=== PATIENT | female | born 1945 | race Caucasian/White ===

== ENCOUNTER 2017-10-03 20:16 | Inpatient (IN) | payer OTHER, MEDICARE ==
[2017-10-03] VITALS (7 sets, daily range): BP systolic 109–145; BP diastolic 64–86; PULSE 79–88; RESP 20–22; TEMP 97.6; O2SAT 83–97
[~2017-10-03] VITALS: Ht 160 cm; Wt 80.8 kg
[~2017-10-03 20:16] MED LIST: MOBI15TA PO; SYNT112T PO
[2017-10-03] MEDS ORDERED: SODIUM CHLORIDE 0.9% FLUSH 10 ML FLUSH IVF PRN (20:30)
[2017-10-03] MEDS ORDERED: FUROSEMIDE 100 MG/10 ML VIAL IVP ONE (20:30)
[2017-10-03] MEDS ORDERED: LEVO-168 PO (20:34)
[2017-10-03] MEDS ORDERED: METF500T PO (20:34)
[2017-10-03] MEDS ORDERED: MILL5PAK PO (20:34)
[2017-10-03] MEDS ORDERED: MOBI15TA PO (20:34)
--- NOTE | 2017-10-03 20:40 | PD ---
HPI Chief Complaint: Respiratory Distress Time Seen by Provider: 20:30 Travel History International Travel<30 days: No Contact w/Intl Traveler<30days: No Traveled to known affect area: No History of Present Illness HPI The patient was seen and examined in the presence of the nurse. This patient complains of shortness of breath. Duration 2 hours. Symptoms are severe. No alleviating factors. Patient has poor baseline lung function. She is on 3 L nasal cannula [id number] and often uses another liter or 2 when she gets short of breath. She is chronically short of breath. She has pulmonary fibrosis. She denies cough or congestion or runny nose or fever or chest pain or presyncopal symptoms. She has chronic leg swelling and uses as needed diuretic. No exacerbating factors. PFSH Past Medical History ?: Not Social History Alcohol Use: No Tobacco Use: No Substance Use: No Allergies-Medications (Allergen,Severity, Reaction): Coded Allergies: No Known Allergies (Verified Adverse Reaction, Unknown, 10/03/17) Reported Meds & Prescriptions Reported Meds & Active Scripts Active Reported Metformin (Metformin HCl) 500 Mg Tab 500 Mg PO BIDPC Millipred 5 mg Dose Pack (21 tabs) (Prednisolone) 5 Mg (21 Tabs) Yayo 15 Mg PO DAILY Mobic (Meloxicam) 15 Mg Tab 15 Mg PO DAILY Levothyroxine (Levothyroxine Sodium) 112 Mcg Tab 112 Mcg PO DAILY Review of Systems General / Constitutional: No: Fever Eyes: No: Visual changes HENT: No: Headaches Cardiovascular: Positive: Edema, No: Chest Pain or Discomfort Respiratory: Positive: Shortness of Breath Gastrointestinal: No: Abdominal Pain Genitourinary: No: Dysuria Musculoskeletal: Positive: Edema, No: Pain Skin: No Rash Neurologic: No: Weakness Psychiatric: No: Depression Endocrine: No: Polydipsia Hematologic/Lymphatic: No: Easy Bruising Physical Exam Narrative GENERAL: Elderly short of breath well-developed patient SKIN: Focused skin assessment reveals no rash and nodules. Skin is Warm and dry. HEAD: Atraumatic. Normocephalic. EYES: Pupils equal and round. No scleral icterus. No injection or drainage. ENT: No nasal bleeding or discharge. Mucous membranes pink and moist. NECK: Trachea midline. No JVD. CARDIOVASCULAR: Regular rate and rhythm. No murmur appreciated. RESPIRATORY: Some accessory muscle use. Bilateral basilar and mid lung crackles without wheezing. Breath sounds equal bilaterally. GASTROINTESTINAL: Abdomen soft, non-tender, nondistended. Hepatic and splenic margins not palpable. MUSCULOSKELETAL: No obvious deformities. No clubbing. No cyanosis. Symmetric mild edema the feet and ankles NEUROLOGICAL: Awake and alert. No obvious cranial nerve deficits. Motor grossly within normal limits. Normal speech. PSYCHIATRIC: Appropriate mood and affect; insight and judgment normal. Data Data Last Documented VS Vital Signs Date Time Temp Pulse Resp B/P (MAP) Pulse Ox O2 Delivery O2 Flow Rate FiO2 10/03/17 21:30 82 22 117/74 (88) 97 Partial Rebreather 15.00 10/03/17 20:24 97.6 Orders Orders Complete Blood Count With Diff (10/03/17 20:30) Basic Metabolic Panel (Bmp) (10/03/17 20:30) B-Type Natriuretic Peptide (10/03/17 20:30) Arterial Blood Gas (Abg) (10/03/17 20:30) Iv Access Insert/Monitor (10/03/17 20:30) Electrocardiogram (10/03/17 20:30) Ecg Monitoring (10/03/17 20:30) Oximetry (10/03/17 20:30) Oxygen Administration (10/03/17 20:30) Chest, Single Ap (10/03/17 20:30) Urinary Catheter Insert/Apply (10/03/17 20:30) Sodium Chloride 0.9% Flush (Ns Flush) (10/03/17 20:30) Furosemide Inj (Lasix Inj) (10/03/17 20:30) Urinalysis - C+S If Indicated (10/03/17 21:31) Lactic Acid (10/03/17 21:31) Blood Culture (10/03/17 21:31) Admit Order (Ed Use Only) (10/03/17 22:12) Labs Laboratory Tests Test 10/03/17 20:30 10/03/17 20:37 White Blood Count 23.3 TH/MM3 Red Blood Count 5.54 MIL/MM3 Hemoglobin 18.2 GM/DL Hematocrit 56.8 % Mean Corpuscular Volume 102.6 FL Mean Corpuscular Hemoglobin 32.8 PG Mean Corpuscular Hemoglobin Concent 32.0 % Red Cell Distribution Width 13.2 % Platelet Count 180 TH/MM3 Mean Platelet Volume 8.8 FL Neutrophils (%) (Auto) 58.0 % Lymphocytes (%) (Auto) 35.7 % Monocytes (%) (Auto) 5.1 % Eosinophils (%) (Auto) 0.4 % Basophils (%) (Auto) 0.8 % Neutrophils # (Auto) 13.5 TH/MM3 Lymphocytes # (Auto) 8.3 TH/MM3 Monocytes # (Auto) 1.2 TH/MM3 Eosinophils # (Auto) 0.1 TH/MM3 Basophils # (Auto) 0.2 TH/MM3 CBC Comment AUTO DIFF Differential Total Cells Counted 100 Neutrophils % (Manual) 57 % Band Neutrophils % 1 % Lymphocytes % 37 % Monocytes % 5 % Neutrophils # (Manual) 13.5 TH/MM3 Differential Comment FINAL DIFF MANUAL Platelet Estimate NORMAL Platelet Morphology Comment CLUMPED Blood Urea Nitrogen 31 MG/DL Creatinine 1.60 MG/DL Random Glucose 258 MG/DL Calcium Level 9.1 MG/DL Sodium Level 139 MEQ/L Potassium Level 5.0 MEQ/L Chloride Level 104 MEQ/L Carbon Dioxide Level 16.9 MEQ/L Anion Gap 18 MEQ/L Estimat Glomerular Filtration Rate 32 ML/MIN B-Type Natriuretic Peptide 1114 PG/ML Blood Gas Puncture Site RT BRACHIAL Blood Gas Patient Temperature 98.6 Blood Gas HCO3 14 mmol/L Blood Gas Base Excess -11.0 mmol/L Blood Gas Oxygen Saturation 87 % Arterial Blood pH 7.28 Arterial Blood Partial Pressure CO2 32 mmHG Arterial Blood Partial Pressure O2 73 mmHG Arterial Blood Oxygen Content 21.9 Vol % Arterial Blood Carboxyhemoglobin 1.6 % Arterial Blood Methemoglobin 1.0 % Blood Gas Hemoglobin 17.9 G/DL Oxygen Delivery Device NASAL CANNULA Blood Gas Liter Flow 6 L/M [facility] Medical Decision Making Medical Screen Exam Complete: Yes Emergency Medical Condition: Yes Medical Record Reviewed: Yes Differential Diagnosis Pulmonary fibrosis, CHF, COPD, respiratory failure Narrative Course I have reviewed the patient's electronic medical record. IV placed CBC shows leukocytosis which may be prednisone affect at least in part metabolic profile shows renal insufficiency and decreased bicarbonate I reviewed her chest x-ray which shows diffuse fibrosis Placed her on 6 L nasal cannula and she is getting around 90% ABG shows pH of 7.28, PO2 73 on 6 L. Reveals metabolic acidosis with some respiratory compensation I gave her 40 mg IV Lasix BnP is quite elevated over thousand Patten catheter placed for I and O, urinalysis sent Had a lengthy discussion with patient and at bedside We have decided to make her a DO NOT RESUSCITATE patient. She understands what that entails. She does not want to be put on a ventilator or CPR or defibrillation I have reviewed with hospitalist will admit to the regular floor. I don't think we need to intensive care at this point given her DNR status and lack of tachycardia or hypotension She is not febrile and I don't think she is septic Dr. Zavala will decide upon antibiotic therapy and consult her manager material The nurse placing a second IV using ultrasound guidance Critical Care Narrative Aggregate critical care time was 38 minutes. Time to perform other separately billable procedures was not included in the critical care time. My time did not include minutes spent treating any other patients simultaneously or on activities that did not directly contribute to the patient's treatment. The services I provided to this patient were to treat and/or prevent clinically significant deterioration that could result in: Hypoxemic brain injury, Restoril failure, cardiopulmonary arrest I provided critical care services requiring my management, as noted below: Chart data review, documentation time, medication orders and management, vital sign assessments/reviewing monitor data, ordering and reviewing lab tests, ordering and interpreting/reviewing x-rays and diagnostic studies, care of the patient and discussion of the patient with the admitting physicians. Diagnosis Primary Impression: Acute hypoxemic respiratory failure Additional Impression: Pulmonary fibrosis Admitting Information Admitting Physician Requests: Joel Florian MD Oct 03, 2017 20:40
[2017-10-03 21:05] LABS: CALCIUM 9.1 MG/DL (8.5-10.1)
[2017-10-03 21:06] LABS: BICARBONATE 16.9 MEQ/L (21.0-32.0)
[2017-10-03 21:09] LABS: CREATININE 1.6 MG/DL (0.50-1.00)
[2017-10-03 21:19] LABS: AUTOMATED NEUTROPHIL # 13.5 TH/MM3 (1.8-7.7); BASOPHIL # 0.2 TH/MM3 (0-0.2); BASOPHIL % 0.8 % (0.0-2.0); EOSINOPHIL # 0.1 TH/MM3 (0-0.4); EOSINOPHIL % 0.4 % (0.0-4.0); HEMATOCRIT 56.8 % (35.0-46.0); HEMOGLOBIN 18.2 GM/DL (11.6-15.3); LYMPH % 35.7 % (9.0-44.0); LYMPHOCYTE # 8.3 TH/MM3 (1.0-4.8); MEAN CELL VOLUME 102.6 FL (80.0-100.0); MEAN CORPUSCULAR HEMOGLOBIN 32.8 PG (27.0-34.0); MEAN PLATELET VOLUME 8.8 FL (7.0-11.0); MONO % 5.1 % (0.0-8.0); MONOCYTE # 1.2 TH/MM3 (0-0.9); PLATELET COUNT 180 TH/MM3 (150-450); RED BLOOD COUNT 5.54 MIL/MM3 (4.00-5.30); RED CELL DISTRIBUTION WIDTH 13.2 % (11.6-17.2); WHITE BLOOD COUNT 23.3 TH/MM3 (4.0-11.0)
[2017-10-03 21:38] LABS: BANDS 1 % (0-6); LYMPHOCYTES 37 % (9-44); MONOCYTES 5 % (0-8); NEUTROPHIL # MANUAL DIFF 13.5 TH/MM3 (1.8-7.7); POLYS (SEG NEUTROPHILS) 57 % (16-70)
--- NOTE | 2017-10-03 21:40 | RADRPT ---
EXAM DATE/TIME: 10/03/2017 21:18 [place] COMPARISON: No previous studies available for comparison. INDICATIONS : Cough and short of breath. MEDICAL HISTORY : Cystic fibrosis. SURGICAL HISTORY : None. ENCOUNTER: Initial ACUITY: 1 day PAIN SCORE: 0/10 LOCATION: Bilateral chest FINDINGS: Chronic reticular interstitial lung disease seen bilaterally diffusely. Focal consolidation is not se en. Heart and mediastinum are unremarkable for technique. CONCLUSION: Chronic reticular interstitial lung disease. Elijah Leach MD on October 03, 2017 at 21:38 Board Certified Radiologist. This report was verified electronically.
[2017-10-03] MEDS ORDERED: SENNOSIDES 8.6 MG TAB PO PRN (22:30)
[2017-10-03] MEDS ORDERED: SODIUM CHLORIDE 0.9% FLUSH 10 ML FLUSH IV FLUSH PRN (22:30)
[2017-10-03] MEDS ORDERED: ONDANSETRON HCL 4 MG/2 ML VIAL IVP PRN (22:30)
[2017-10-03] MEDS ORDERED: LACTULOSE SYRUP 20 GM/30 ML CUP PO PRN (22:30)
[2017-10-03] MEDS ORDERED: MAGNESIUM HYDROXIDE SUSP 30 ML CUP PO PRN (22:30)
[2017-10-03] MEDS ORDERED: BISACODYL 10 MG SUPP RECTAL PRN (22:30)
[2017-10-03] MEDS ORDERED: NALOXONE HCL 0.4 MG/ML AMP IV PUSH PRN (22:30)
[2017-10-03] MEDS ORDERED: ACETAMINOPHEN 325 MG TAB PO PRN (22:30)
[2017-10-03 22:51] LABS: BILIRUBIN, URINE NEG (NEG); BLOOD, URINE NEG (NEG); GLUCOSE,URINE NEG (NEG); KETONE, URINE NEG (NEG); NITRITE,URINE NEG (NEG); PH, URINE 5.5 (5.0-8.5); URINE LEUKOCYTE ESTERASE NEG (NEG)
[2017-10-03 22:56] LABS: URINE COLOR YELLOW (YELLW/STRAW)
[2017-10-03 22:57] LABS: MUCUS URINE OCC /lpf (OCC)
[2017-10-03 22:58] LABS: AMORPHOUS SEDIMENT, URINE MOD; SQUAMOUS EPITHELIAL CELL URINE 0-5 /hpf (0-5)
[2017-10-03 22:59] LABS: RENAL EPITHELIAL CELLS 0-5 /hpf
[2017-10-03] MEDS ORDERED: HEPARIN SODIUM - SQ 10,000 UNITS/ML VIAL SQ SCH (23:00)
[2017-10-04] VITALS (7 sets, daily range): BP systolic 125–140; BP diastolic 59–75; PULSE 68–73; RESP 18–24; TEMP 97.3–97.9; O2SAT 90–95
[2017-10-04] MEDS: SODIUM CHLOR 0.9% 1000 ML INJ 1,000 ML IV SCH ×3 (02:59→14:39)
[2017-10-04 03:38] LABS: LACTIC ACID SEPSIS PROTOCOL 2.1 mmol/L (0.4-2.0)
[2017-10-04 06:32] LABS: AUTOMATED NEUTROPHIL # 12.5 TH/MM3 (1.8-7.7); BASOPHIL # 0.8 TH/MM3 (0-0.2); BASOPHIL % 2.9 % (0.0-2.0); EOSINOPHIL # 0.4 TH/MM3 (0-0.4); EOSINOPHIL % 1.3 % (0.0-4.0); HEMATOCRIT 48.8 % (35.0-46.0); HEMOGLOBIN 15.8 GM/DL (11.6-15.3); LYMPH % 42.8 % (9.0-44.0); LYMPHOCYTE # 11.6 TH/MM3 (1.0-4.8); MEAN CELL VOLUME 102.9 FL (80.0-100.0); MEAN CORPUSCULAR HEMOGLOBIN 33.3 PG (27.0-34.0); MEAN CORPUSCULAR HGB CONC 32.4 % (32.0-36.0); MEAN PLATELET VOLUME 8.7 FL (7.0-11.0); MONO % 6.6 % (0.0-8.0); MONOCYTE # 1.8 TH/MM3 (0-0.9); NEUT % 46.4 % (16.0-70.0); PLATELET COUNT 151 TH/MM3 (150-450); RED BLOOD COUNT 4.75 MIL/MM3 (4.00-5.30); WHITE BLOOD COUNT 27.1 TH/MM3 (4.0-11.0)
[2017-10-04 07:06] LABS: BICARBONATE 24.2 MEQ/L (21.0-32.0); CALCIUM 8.4 MG/DL (8.5-10.1)
[2017-10-04 07:39] LABS: BASOPHILS 1 % (0-2); LYMPHOCYTES 44 % (9-44); MONOCYTES 9 % (0-8); NEUTROPHIL # MANUAL DIFF 12.5 TH/MM3 (1.8-7.7); POLYS (SEG NEUTROPHILS) 46 % (16-70)
[2017-10-04 07:43] LABS: SMUDGE CELLS PRESENT PRESENT
[2017-10-04] MEDS: SODIUM CHLORIDE 0.9% FLUSH 10 ML FLUSH IV FLUSH SCH ×2 (07:43→22:04)
[2017-10-04] MEDS: DOCUSATE SODIUM 50 MG/SENNA 8.6 MG TAB PO SCH ×2 (07:55→22:04)
[2017-10-04] MEDS ORDERED: DEXTROSE 50% IN WATER 50 ML VIAL(D50) IV PUSH PRN (10:30)
[2017-10-04] MEDS ORDERED: GLUCAGON 1 MG/ML VIAL OTHER PRN (10:30)
[2017-10-04] MEDS ORDERED: RESP: ALBUTEROL 2.5 MG/IPRATROPIUM 0.5 MG NEB (PRN) NEB (11:15)
[2017-10-04] MEDS ORDERED: methylPREDNISolone SOD SUCC 40 MG/1 ML VIAL IV PUSH SCH (11:30)
--- NOTE | 2017-10-04 11:30 | HHI.HP ---
[facility] Unknown Admission Diagnosis acute on chronic resp failure, DNR, pulm fibrosis Diagnoses: Chief Complaint: Shortness of breath with nausea for one day Travel History International Travel<30 Days: No Contact w/Intl Traveler <30 Da: No Traveled to Known Affected Are: No Sepsis Criteria SIRS Criteria (2 or more): RR > 20 or PaCO2 < 32, WBC > 30669, < 4000 or > 10 % bands Sepsis Criteria (SIRS+source): Infect source susp/known History of Present Illness This patient is a 72-year-old female with a history of pulmonary fibrosis who came to the hospital secondary to decreased breathing, nausea and altered mental status for 1 day. Patient was brought to the hospital by emergency services after her called. Per she had turned blue. Patient says she had a lot of lower predinner was working a lot and had difficulty breathing and tried to lay down but apparently she didn't wake up in a timely fashion and then she woke up to find multiple emergency personnel around her. She has known history of polio fibrosis for the last 4 years. She has seen several screen printing machine operator in the past and has finally scheduled with Dr. Hyatt. Patient says her grandson was 17 was sick and coughing and she may have caught something from him. She did have some coughing. She has felt better with bronchodilators and oxygen. On arrival she required 15 L on a partial nonrebreather. Normally she uses 3-4 L at home. She is minimally ambulatory and has poor quality of life due to respiratory status. She is quite acidotic on arrival. In the emergency room she did have a DNR placed in her chart after conversations with the emergency room professional team. She felt better after IV Lasix was given. She did diurese quite a bit and about a liter fluid was obtained. She has been admitted to the hospital due to severe respiratory failure and evidence of sepsis Review of Systems Constitutional: DENIES: Diaphoretic episodes, Fatigue, Fever, Weight gain, Weight loss, Chills, Dizziness, Change in appetite, Night Sweats Endocrine: DENIES: Abnorml menstrual pattern, Heat/cold intolerance, Polydipsia , Polyuria, Polyphagia Eyes: DENIES: Blurred vision, Diplopia, Eye inflammation, Eye pain, Vision loss , Photosensitivity, Double Vision Ears, nose, mouth, throat: DENIES: Tinnitus, Hearing loss, Vertigo, Nasal discharge, Oral lesions, Throat pain, Hoarseness, Ear Pain, Running Nose, Epistaxis, Sinus Pain, Toothache, Odynophagia Respiratory: COMPLAINS OF: Cough, Shortness of breath, DENIES: Apneas, Snoring , Wheezing, Hemoptysis, Sputum production Cardiovascular: DENIES: Chest pain, Palpitations, Syncope, Dyspnea on Exertion , PND, Lower Extremity Edema, Orthopnea, Claudication Gastrointestinal: DENIES: Abdominal pain, Black stools, Bloody stools, Constipation, Diarrhea, Nausea, Vomiting, Difficulty Swallowing, Anorexia Genitourinary: DENIES: Abnormal vaginal bleeding, Dysmenorrhea, Dyspareunia, Sexual dysfunction, Urinary frequency, Urinary incontinence, Urgency, Hematuria , Dysuria, Nocturia, Vaginal discharge Musculoskeletal: DENIES: Joint pain, Muscle aches, Stiffness, Joint Swelling, Back pain, Neck pain Integumentary: DENIES: Abnormal pigmentation, Pruritus, Rash, Nail changes, Breast masses, Breast skin changes, Nipple discharge Hematologic/lymphatic: DENIES: Bruising, Lymphadenopathy Immunologic/allergic: DENIES: Eczema, Urticaria Neurologic: DENIES: Abnormal gait, Headache, Localized weakness, Paresthesias, Seizures, Speech Problems, Tremor, Poor Balance Psychiatric: DENIES: Anxiety, Confusion, Mood changes, Depression, Hallucinations, Agitation, Suicidal Ideation, Homicidal Ideation, Delusions Except as stated in HPI: all other systems reviewed are Neg Past Family Social History Past Medical History Pulmonary fibrosis for 4 years Past Surgical History Tonsils Appendectomy Reported Medications Reviewed in the EMR, on steroids Allergies: Coded Allergies: No Known Allergies (Verified Allergy, Unknown, 10/03/17) Active Ordered Medications Reviewed in the EMR Family History Mother was in hospice for brain cancer and passed, father had lung cancer and passed Social History , no current tobacco although she quit 10 years ago, reports sick contacts and her grandson who is 17 Works at [employer] but is on medical leave due to pulmonary fibrosis Physical Exam Vital Signs Vital Signs Date Time Temp Pulse Resp B/P (MAP) Pulse Ox O2 Delivery O2 Flow Rate FiO2 10/04/17 08:00 97.8 68 18 135/72 (93) 94 10/04/17 00:00 97.3 69 20 125/73 (90) 91 10/03/17 23:45 94 Nasal Cannula 6.00 10/03/17 23:29 76 20 118/64 (82) 92 Nasal Cannula 6.00 10/03/17 22:20 82 20 109/79 (89) 91 Nasal Cannula 6.00 10/03/17 21:30 82 22 117/74 (88) 97 Partial Rebreather 15.00 10/03/17 21:17 79 22 117/74 (88) 97 Partial Rebreather 15.00 10/03/17 20:46 87 22 132/65 (87) 94 Partial Rebreather 10/03/17 20:44 91 Nasal Cannula 6.00 10/03/17 20:24 86 22 83 Nasal Cannula 10/03/17 20:24 97.6 88 22 145/86 (105) 83 Physical Exam GENERAL: This is a well-nourished, well-developed patient, SKIN: No rashes, ecchymoses or lesions. Cool and dry. HEAD: Atraumatic. Normocephalic. No temporal or scalp tenderness. EYES: Pupils equal round and reactive. Extraocular motions intact. No scleral icterus. No injection or drainage. ENT: Nose without bleeding, purulent drainage or septal hematoma. Throat without erythema, tonsillar hypertrophy or exudate. Uvula midline. Airway patent. NECK: Trachea midline. No JVD or lymphadenopathy. Supple, nontender, no meningeal signs. CARDIOVASCULAR: Regular rate and rhythm without murmurs, gallops, or rubs. RESPIRATORY: Decreased breath sounds with fine crackles throughout GASTROINTESTINAL: Abdomen soft, non-tender, nondistended. No hepato-splenomegaly , or palpable masses. No guarding. MUSCULOSKELETAL: Extremities without clubbing, cyanosis, or edema. No joint tenderness, effusion, or edema noted. No calf tenderness. Negative Homans sign bilaterally. NEUROLOGICAL: Awake and alert. Cranial nerves II through XII intact. Motor and sensory grossly within normal limits. Five out of 5 muscle strength in all muscle groups. Normal speech. Laboratory Laboratory Tests Test 10/03/17 20:30 10/03/17 20:37 10/03/17 21:15 10/03/17 21:25 White Blood Count 23.3 Red Blood Count 5.54 Hemoglobin 18.2 Hematocrit 56.8 Mean Corpuscular Volume 102.6 Mean Corpuscular Hemoglobin 32.8 Mean Corpuscular Hemoglobin Concent 32.0 Red Cell Distribution Width 13.2 Platelet Count 180 Mean Platelet Volume 8.8 Neutrophils (%) (Auto) 58.0 Lymphocytes (%) (Auto) 35.7 Monocytes (%) (Auto) 5.1 Eosinophils (%) (Auto) 0.4 Basophils (%) (Auto) 0.8 Neutrophils # (Auto) 13.5 Lymphocytes # (Auto) 8.3 Monocytes # (Auto) 1.2 Eosinophils # (Auto) 0.1 Basophils # (Auto) 0.2 CBC Comment AUTO DIFF Differential Total Cells Counted 100 Neutrophils % (Manual) 57 Band Neutrophils % 1 Lymphocytes % 37 Monocytes % 5 Neutrophils # (Manual) 13.5 Differential Comment FINAL DIFF MANUAL Platelet Estimate NORMAL Platelet Morphology Comment CLUMPED Blood Urea Nitrogen 31 Creatinine 1.60 Random Glucose 258 Calcium Level 9.1 Sodium Level 139 Potassium Level 5.0 Chloride Level 104 Carbon Dioxide Level 16.9 Anion Gap 18 Estimat Glomerular Filtration Rate 32 B-Type Natriuretic Peptide 1114 Blood Gas Puncture Site RT BRACHIAL Blood Gas Patient Temperature 98.6 Blood Gas HCO3 14 Blood Gas Base Excess -11.0 Blood Gas Oxygen Saturation 87 Arterial Blood pH 7.28 Arterial Blood Partial Pressure CO2 32 Arterial Blood Partial Pressure O2 73 Arterial Blood Oxygen Content 21.9 Arterial Blood Carboxyhemoglobin 1.6 Arterial Blood Methemoglobin 1.0 Blood Gas Hemoglobin 17.9 Oxygen Delivery Device NASAL CANNULA Blood Gas Liter Flow 6 Urine Collection Type CATH Urine Color YELLOW Urine Turbidity SLIGHT Urine pH 5.5 Urine Specific [place] 1.010 Urine Protein 30 Urine Glucose (UA) NEG Urine Ketones NEG Urine Occult Blood NEG Urine Nitrite NEG Urine Bilirubin NEG Urine Leukocyte Esterase NEG Urine Squamous Epithelial Cells 0-5 Urine Renal Epithelial Cells 0-5 Urine Amorphous Sediment MOD Urine Hyaline Casts 3-5 Urine Fine Granular Casts 3-5 Urine Mucus OCC Microscopic Urinalysis Comment CATH-CULT NOT IND Lactic Acid Level 5.1 Test 10/04/17 03:15 10/04/17 05:55 Lactic Acid Level 2.1 1.5 White Blood Count 27.1 Red Blood Count 4.75 Hemoglobin 15.8 Hematocrit 48.8 Mean Corpuscular Volume 102.9 Mean Corpuscular Hemoglobin 33.3 Mean Corpuscular Hemoglobin Concent 32.4 Red Cell Distribution Width 13.0 Platelet Count 151 Mean Platelet Volume 8.7 Neutrophils (%) (Auto) 46.4 Lymphocytes (%) (Auto) 42.8 Monocytes (%) (Auto) 6.6 Eosinophils (%) (Auto) 1.3 Basophils (%) (Auto) 2.9 Neutrophils # (Auto) 12.5 Lymphocytes # (Auto) 11.6 Monocytes # (Auto) 1.8 Eosinophils # (Auto) 0.4 Basophils # (Auto) 0.8 CBC Comment AUTO DIFF Differential Total Cells Counted 100 Neutrophils % (Manual) 46 Lymphocytes % 44 Monocytes % 9 Basophils % 1 Neutrophils # (Manual) 12.5 Differential Comment FINAL DIFF MANUAL Smudge Cells PRESENT Platelet Estimate NORMAL Platelet Morphology Comment NORMAL Blood Urea Nitrogen 33 Creatinine 1.00 Random Glucose 101 Calcium Level 8.4 Sodium Level 143 Potassium Level 4.0 Chloride Level 108 Carbon Dioxide Level 24.2 Anion Gap 11 Estimat Glomerular Filtration Rate 54 Date/Time Source Procedure Growth Status 10/03/17 21:25 Blood Peripheral Aerobic Blood Culture - Preliminary NO GROWTH IN 1 DAY Resulted 10/03/17 21:25 Blood Peripheral Anaerobic Blood Culture - Preliminary NO GROWTH IN 1 DAY Resulted Result Diagram: 10/04/17 0555 10/04/17554 Imaging Last Impressions Chest X-Ray 10/03/172029 Signed Impressions: Service Date/Time: Tuesday, October 03, 2017 21:18 - CONCLUSION: Chronic reticular interstitial lung disease. MD Jinny Shah VTE Risk Assessment Geraldrini VTE Risk Assessment: Mod/High Risk (score >= 2) Caprini Risk Assessment Model Point Value = 1 Point Value = 2 Point Value = 3 Point Value = 5 Age 41-60 Minor surgery BMI > 25 kg/m2 Swollen legs Varicose veins or History of unexplained or recurrent spontaneous Oral contraceptives or hormone replacement Sepsis (< 1 month) Serious lung disease, including pneumonia (< 1 month) Abnormal pulmonary function Acute myocardial infarction Congestive heart failure (< 1 month) History of inflammatory bowel disease Medical patient at bed rest Age 61-74 Arthroscopic surgery Major open surgery (> 45 min) Laparoscopic surgery (> 45 min) Malignancy Confined to bed (> 72 hours) Immobilizing plaster cast Central venous access Age >= 75 History of VTE Family history of VTE Factor V Leiden Prothrombin [id number] Lupus anticoagulant Anticardiolipin antibodies Elevated serum homocysteine Heparin-induced thrombocytopenia Other congenital or acquired thrombophilia Stroke (< 1 month) Elective arthroplasty Hip, pelvis, or leg fracture Acute spinal cord injury (< 1 month) Prophylaxis Regimen Total Risk Factor Score Risk Level Prophylaxis Regimen 0-1 Low Early ambulation 2 Moderate Order ONE of the following: *Sequential Compression Device (SCD) *Heparin 5000 units SQ BID 3-4 Higher Order ONE of the following medications: *Heparin 5000 units SQ TID *Enoxaparin/Lovenox 40 mg SQ daily (WT < 150 kg, CrCl > 30 mL/min) *Enoxaparin/Lovenox 30 mg SQ daily (WT < 150 kg, CrCl > 10-29 mL/min) *Enoxaparin/Lovenox 30 mg SQ BID (WT < 150 kg, CrCl > 30 mL/min) AND/OR *Sequential Compression Device (SCD) 5 or more Highest Order ONE of the following medications: *Heparin 5000 units SQ TID (Preferred with Epidurals) *Enoxaparin/Lovenox 40 mg SQ daily (WT < 150 kg, CrCl > 30 mL/min) *Enoxaparin/Lovenox 30 mg SQ daily (WT < 150 kg, CrCl > 10-29 mL/min) *Enoxaparin/Lovenox 30 mg SQ BID (WT < 150 kg, CrCl > 30 mL/min) AND *Sequential Compression Device (SCD) Assessment and Plan Problem List: (1) Acute hypoxemic respiratory failure ICD Code: J96.01 - Acute respiratory failure with hypoxia Status: Acute Plan: Continue oxygen for supplementation Bronchodilators, steroids Consult pending Follow-up echo for cardiac evaluation (2) Pulmonary fibrosis ICD Code: J84.10 - Pulmonary fibrosis, unspecified Status: Acute Plan: CODE STATUS addressed in emergency room and patient has initially agreed to DO NOT RESUSCITATE status however she is unsure as to how to proceed in palliative care consult is pending (3) Bronchitis ICD Code: J40 - Bronchitis, not specified as acute or chronic Plan: Doxycycline, nebulizers Patient refuses flu vaccine flu pending Assessment and Plan Heparin q12 dc ewing Code Status DO NOT RESUSCITATE Discussed Condition With Patient Physician Certification 2 Midnight Certification Type: Admission for Inpatient Services Order for Inpatient Services The services are ordered in accordance with Medicare regulations or non- Medicare payer requirements, as applicable. In the case of services not specified as inpatient-only, they are appropriately provided as inpatient services in accordance with the 2-midnight benchmark. Estimated LOS (days): 3 3 days is the estimated time the patient will need to remain in the hospital, assuming treatment plan goals are met and no additional complications. Post-Hospital Plan: Home Josephine Branham MD Oct 04, 2017 11:30
[2017-10-04] MEDS: INSULIN ASPART SUPPLEMENTAL SCALE SQ SCH ×3 (11:38→22:05)
[2017-10-04] MEDS: DOXYCYCLINE HYCLATE 100 MG TAB PO SCH ×2 (12:00→22:31)
[2017-10-04] MEDS: HEPARIN SODIUM - SQ 10,000 UNITS/ML VIAL SQ SCH ×2 (12:46→22:04)
[2017-10-04] MEDS: LEVOTHYROXINE SODIUM 112 MCG TAB PO SCH (12:47)
[2017-10-04] MEDS: MELOXICAM 15 MG TAB PO SCH (12:47)
[2017-10-04] MEDS: RESP: ALBUTEROL 2.5 MG/IPRATROPIUM 0.5 MG NEB (SCH) NEB ×2 (14:16→20:38)
--- NOTE | 2017-10-04 16:46 | EKG ---
Date Performed: 10/03/2017 Time Performed: 20:45:12 PTAGE: 72 years EKG: Sinus rhythm INCOMPLETE RIGHT BUNDLE BRANCH BLOCK POSSIBLE RIGHT VENTRICULAR HYPERTROPHY PROBABLE INFERIOR MYOCAR DIAL INFARCTION MODERATE T-WAVE ABNORMALITY, CONSIDER ANTEROLATERAL ISCHEMIA ABNORMAL ECG NO PREVIOUS TRACING DOCTOR: Kelsy Foster Interpretating Date/Time 10/04/2017 16:46:02
[2017-10-04] MEDS: cefTRIAXone INJ 1,000 MG in SODIUM CHLORIDE 0.9% INJ 100 ML IV SCH (22:01)
[2017-10-04] MEDS: methylPREDNISolone SOD SUCC 40 MG/1 ML VIAL IV PUSH SCH (22:02)
--- NOTE | 2017-10-04 23:54 | MB ---
cc: TERRANCE QUARLES JOHN DATE OF CONSULTATION: 10/04/2017 REASON FOR CONSULTATION: Pulmonary fibrosis and hypoxia. HISTORY OF PRESENT ILLNESS: This 72 year-old lady has a longstanding history of pulmonary fibrosis and bronchiectasis was on home oxygen at 4 to 5 liters via nasal cannula. The patient apparently started to have increasing chest congestion and persistent cough and became quite cyanotic yesterday and she was then brought to the emergency room for evaluation. The patient has been on home oxygen at 4 to 5 liters. She also uses albuterol inhaler on a p.r.n. basis. She was brought to the hospital and upon arrival in the ER, a chest CT was done which showed evidence of fibrotic lung disease, and the patient was severely hypoxic, was admitted and started on IV steroids and bronchodilator. She was not running any fevers, no hemoptysis. There is no leg swelling or calf muscle pain. PAST MEDICAL HISTORY: 1. History of extensive pulmonary fibrosis. 2. History of recurrent exacerbation of bronchitis and bronchiectasis. 3. She has she has had tonsillectomy, appendectomy remotely. HABITS: The patient did smoke remotely for over 20 years and then quit. She does use alcohol occasionally. FAMILY HISTORY: Family history is significant for brain cancer in her mother and father had a history of lung cancer. REVIEW OF SYSTEMS The patient has lost weight. Post nasal drip, cough, dizziness, wheezing. Denies any abdominal pain. Denies nausea and vomiting, no urinary symptoms. No leg or calf muscle pain. PHYSICAL EXAMINATION: This is an elderly averagely built white female in no acute distress. VITAL SIGNS: Blood pressure 130/70, pulse 76, respirations 20, temperature 98.2. HEENT: Head normocephalic. Pupils are reactive. Tongue moist. Nasal mucosae masses. Throat was clear. Neck: Supple. No bruits or thyroid enlargement. Chest: Equal movements with an increased AP diameter with diffuse wheezes throughout both lung griggs.Fine crackles at bases. Heart: The heart sounds are irregular, S1-S2. Abdomen: Soft, protuberant. No masses, no organomegaly or tenderness. Bowel sounds active. Extremities: Minimal edema with normal reflexes. No deficits. IMPRESSION 1. Extensive pulmonary fibrosis with bronchiectasis. 2. Acute exacerbation of chronic bronchitis and bronchiectasis. PLAN The patient has been started on Solu-Medrol 40 mg IV q8 hours, continue doxycycline 100 milligrams b.i.d. and add Rocephin one gram IV daily. O2 at 5 L N/C and wean to keep sat >90 Nebulized DuoNeb solution will be added 3x a day and p.r.n. Prognosis is Guarded Sputum will be sent for Gram stain and culture. Thank you for the consultation. MD MIKAELA Bearden/ODALYS /11:08 PM /11:28 PM [email or web address]
[2017-10-05] VITALS (8 sets, daily range): BP systolic 121–184; BP diastolic 60–85; PULSE 64–93; RESP 20–24; TEMP 96–97.6; O2SAT 91–97
[2017-10-05] MEDS ORDERED: FUROSEMIDE 20 MG/2 ML VIAL IV PUSH ONE (02:00)
[2017-10-05] MEDS: LEVOTHYROXINE SODIUM 112 MCG TAB PO SCH (05:56)
[2017-10-05] MEDS: HEPARIN SODIUM - SQ 10,000 UNITS/ML VIAL SQ SCH ×3 (05:56→22:08)
[2017-10-05] MEDS: methylPREDNISolone SOD SUCC 40 MG/1 ML VIAL IV PUSH SCH ×3 (05:57→22:07)
[2017-10-05] MEDS: SODIUM CHLOR 0.9% 1000 ML INJ 1,000 ML IV SCH (06:03)
[2017-10-05] MEDS: RESP: ALBUTEROL 2.5 MG/IPRATROPIUM 0.5 MG NEB (SCH) NEB ×3 (07:29→20:47)
--- NOTE | 2017-10-05 08:59 | HHI.PR ---
Subjective Remarks Patient seen and examined today in follow-up for acute on chronic hypoxic respiratory failure secondary to pulmonary fibrosis, bronchiectasis. Patient states that she is breathing better today after the use of Lasix last night. Patient had multiple questions about hospice. I spent extensive amount of time discussing hospice and how they can benefit her in her treatment plan. Patient is open to evaluation. Patient gave authorization for consultation. Objective Vital Signs Date Time Temp Pulse Resp B/P (MAP) Pulse Ox O2 Delivery O2 Flow Rate FiO2 10/05/17 04:00 96.2 89 20 126/77 (93) 97 10/05/17 00:00 96.2 64 24 132/82 (99) 93 10/04/17 20:40 92 Nasal Cannula 6.00 10/04/17 20:00 97.6 72 24 136/66 (89) 91 10/04/17 16:00 97.7 72 18 140/75 (96) 91 10/04/17 14:17 90 Nasal Cannula 6.00 10/04/17 12:00 97.9 73 18 126/59 (81) 95 I/O 10/04/17 10/04/17 10/04/17 10/05/17 10/05/17 10/05/17 07:00 15:00 23:00 07:00 15:00 23:00 Intake Total 180 ml 1000 ml 500 ml 689 ml Output Total 950 ml 1150 ml 480 ml Balance -770 ml 1000 ml -650 ml 209 ml Intake Oral 180 ml 480 ml IV Total 1000 ml 500 ml 209 ml Output Urine Total 950 ml 1150 ml 480 ml # Voids 1 1 # Bowel Movements 0 Result Diagram: 10/04/17 0555 10/04/17 0555 Imaging Last Impressions Chest X-Ray 10/03/172029 Signed Impressions: Service Date/Time: Tuesday, October 03, 2017 21:18 - CONCLUSION: Chronic reticular interstitial lung disease. Elijah Leach MD Objective Remarks GENERAL: Well-developed, well-nourished, in no acute distress. alert and orientated HEENT: Head is normocephalic without any lesions or masses noted. Facial features are symmetric. Eyes: Extraocular muscles are intact. Conjunctivae were clear. NECK: Supple without any masses. Trachea midline no deviation. No JVD, CARDIAC: Regular rhythm, regular rate. S1/S2 are heard. No murmurs gallops or rubs. LUNGS: Faint crackles noted, no wheezes or rhonchi. No use of accessory muscles on inspiration or expiration. ABDOMEN: Soft, nontender. Nondistended. Bowel sounds heard in all 4 quadrants. No organomegaly or masses. Negative rebound, negative guarding EXTREMITIES: No edema, pulses are equal bilaterally. No cyanosis or clubbing NEUROLOGY: Mood and affect appear appropriate. Cranial nerves II through XII grossly intact. Moving all extremities, speech is clear A/P Assessment and Plan Systemic inflammatory response syndrome, resolved Patient presented with leukocytosis, lactic acidosis, no source of infection was identified Likely secondary to acute respiratory failure Chest x-ray without any infectious etiology, urinalysis was clear Blood cultures are negative for 2 days Acute on chronic hypoxic respiratory failure Likely secondary to acute bronchitis on pulmonary fibrosis, bronchiectasis Continue O2 supplementation maintain O2 saturation greater than 88% Continue antibiotics Rocephin and doxycycline Continue Solu-Medrol 40 mg IV every 8 hours Continue duo nebs every 6 hours while awake and every 2 hours Start easy Pap and incentive spirometry Pulmonology following the patient Hospice consulted at the request of the patient for evaluation Diabetes Accu-Cheks with sliding scale insulin Hypothyroidism Replacement therapy has been continued DVT prevention Subcutaneous heparin Discharge Planning Patient requested hospice consult. Possible discharge to hospice once arrangements made Joel Rodriguez Oct 05, 2017 08:59
[2017-10-05] MEDS: DOXYCYCLINE HYCLATE 100 MG TAB PO SCH ×2 (09:00→22:08)
[2017-10-05] MEDS: DOCUSATE SODIUM 50 MG/SENNA 8.6 MG TAB PO SCH ×2 (09:09→22:09)
[2017-10-05] MEDS: SODIUM CHLORIDE 0.9% FLUSH 10 ML FLUSH IV FLUSH SCH ×2 (09:09→22:07)
[2017-10-05] MEDS: MELOXICAM 15 MG TAB PO SCH (09:09)
[2017-10-05] MEDS: INSULIN ASPART SUPPLEMENTAL SCALE SQ SCH ×4 (09:10→22:06)
[2017-10-05] MEDS ORDERED: ENALAPRILAT 1.25 MG/ML VIAL IV PUSH PRN (12:15)
[2017-10-05] MEDS ORDERED: cloNIDine HCL 0.1 MG TAB PO PRN (12:15)
--- NOTE | 2017-10-05 16:36 | ECHRPT ---
Indication: SHORTNESS OF BREATH CONCLUSIONS The left ventricular systolic function is normal with an estimated ejection fraction in the range of 65-70%. Normal left ventricular size. Wall thickness is normal. No regional wall motion abnormalities are present. The right ventricle is severely dilated. Mild thickening of the mitral valve leaflets. Mitral annular calcification is present. Moderate mitral valve regurgitation. Aortic valve sclerosis is present. There is mild tricuspid valve regurgitation. There is estimated severe pulmonary hypertension present ( > 70 mmHg). BP: 126 / 77 HR: 93 Rhythm: Sinus MEASUREMENTS (Male / Female) Normal Values Technical Quality:Fair 2D ECHO LV Diastolic Diameter PLAX 3.5 cm 4.2 - 5.9 / 3.9 - 5.3 cm LV Systolic Diameter PLAX 2.1 cm IVS Diastolic Thickness 1.0 cm 0.6 - 1.0 / 0.6 - 0.9 cm LVPW Diastolic Thickness 0.9 cm 0.6 - 1.0 / 0.6 - 0.9 cm LV Relative Wall Thickness 0.5 RV Internal Dim ED PLAX 3.3 cm LVOT Diameter 1.9 cm LA Systolic Diameter LX 3.6 cm 3.0 - 4.0 / 2.7 - 3.8 cm M-MODE Aortic Root Diameter MM 2.6 cm LA Systolic Diameter MM 3.8 cm LA Ao Ratio MM 1.5 AV Cusp Separation MM 1.5 cm DOPPLER AV Peak Velocity 152.5 cm/s AV Peak Gradient 9.3 mmHg LVOT Peak Velocity 81.9 cm/s LVOT Peak Gradient 2.7 mmHg AV Area Cont Eq pk 1.5 cm MV Area PHT 5.5 cm Mitral E Point Velocity 56.8 cm/s Mitral A Point Velocity 121.0 cm/s Mitral E to A Ratio 0.5 LV E' Lateral Velocity 7.3 cm/s Mitral E to LV E' Lateral Ratio 7.8 LV E' Septal Velocity 5.7 cm/s Mitral E to LV E' Septal Ratio 10.0 TR Peak Velocity 421.0 cm/s TR Peak Gradient 70.9 mmHg Right Atrial Pressure 10.0 mmHg Pulmonary Artery Systolic Pressu 80.9 mmHg Right Ventricular Systolic Press 80.9 mmHg PV Peak Velocity 84.2 cm/s PV Peak Gradient 2.8 mmHg FINDINGS LEFT VENTRICLE The left ventricular systolic function is normal with an estimated ejection fraction in the range of 65-70%. Normal left ventricular size. Wall thickness is normal. No regional wall motion abnormalities are present. RIGHT VENTRICLE The right ventricle is severely dilated. LEFT ATRIUM The left atrial size is normal. RIGHT ATRIUM The right atrial size is normal. ATRIAL SEPTUM Normal atrial septal thickness without atrial level shunting by limited color doppler interrogation. AORTA The aortic root and proximal ascending aorta are normal in size on limited imaging. MITRAL VALVE Mild thickening of the mitral valve leaflets. Mitral annular calcification is present. Moderate mitral valve regurgitation. AORTIC VALVE Trileaflet aortic valve. Aortic valve sclerosis is present. TRICUSPID VALVE Structurally normal tricuspid valve. There is mild tricuspid valve regurgitation. There is estimated severe pulmonary hypertension present ( > 70 mmHg). PULMONARY VALVE No pulmonary valve regurgitation or stenosis. VESSELS The inferior vena cava is normal in size. PERICARDIUM No pericardial effusion. Howard Teresa MD (Electronically Signed) Final Date:05 October 2017 16:35
--- NOTE | 2017-10-05 18:05 | HHI.PR ---
Subjective Remarks On o2 at 6 l. Has some cough and wheezing. Diuresed well. No fever Objective Vital Signs Date Time Temp Pulse Resp B/P (MAP) Pulse Ox O2 Delivery O2 Flow Rate FiO2 10/05/17 15:50 96.6 93 20 121/60 (80) 91 10/05/17 11:50 97.6 80 20 165/77 (106) 95 10/05/17 07:50 97.3 91 20 184/84 (117) 95 10/05/17 07:40 96 Nasal Cannula 6.00 10/05/17 04:00 96.2 89 20 126/77 (93) 97 10/05/17 00:00 96.2 64 24 132/82 (99) 93 10/04/17 20:40 92 Nasal Cannula 6.00 10/04/17 20:00 97.6 72 24 136/66 (89) 91 I/O 10/04/17 10/04/17 10/04/17 10/05/17 10/05/17 10/05/17 07:00 15:00 23:00 07:00 15:00 23:00 Intake Total 180 ml 1000 ml 500 ml 689 ml 133 ml Output Total 950 ml 1150 ml 480 ml Balance -770 ml 1000 ml -650 ml 209 ml 133 ml Intake Oral 180 ml 480 ml IV Total 1000 ml 500 ml 209 ml 133 ml Output Urine Total 950 ml 1150 ml 480 ml # Voids 1 1 # Bowel Movements 0 Result Diagram: 10/04/17 0555 10/04/17 0555 Objective Remarks This is an elderly averagely built white female in no acute distress. HEENT: Head normocephalic. Pupils are reactive. Tongue moist. Nasal mucosae masses. Throat was clear. Neck: Supple. No bruits or thyroid enlargement. Chest: Equal movements with an increased AP diameter with diffuse wheezes throughout both lung griggs.Fine crackles at bases. Heart: The heart sounds are irregular, S1-S2. Abdomen: Soft, protuberant. No masses, no organomegaly or tenderness. Bowel sounds active. Extremities: Minimal edema with normal reflexes.Clubbing ++. No Neuro deficits. Assessment and Plan Assessment and Plan IMPRESSION 1. Extensive pulmonary fibrosis with bronchiectasis. 2. Acute exacerbation of chronic bronchitis and bronchiectasis. Plan : 1. Wean O2 to 4 L.Keep sat >89 2. Nebs tid , duoneb. 3. Continue antibiotics. 4. Solumedrol 40 mg IV q8h 5. Cough med PRN 6. BMP ,CBC in am Navya Lima MD Oct 05, 2017 18:05
[2017-10-05] MEDS: cefTRIAXone INJ 1,000 MG in SODIUM CHLORIDE 0.9% INJ 100 ML IV SCH (22:07)
[2017-10-06] VITALS: BP 192/90; PULSE 86; RESP 20; TEMP 96; O2SAT 92
[2017-10-06 04:00] VITALS: BP 133/81; PULSE 88; RESP 20; TEMP 96; O2SAT 90
[2017-10-06] MEDS: methylPREDNISolone SOD SUCC 40 MG/1 ML VIAL IV PUSH SCH ×2 (06:29→13:51)
[2017-10-06] MEDS: HEPARIN SODIUM - SQ 10,000 UNITS/ML VIAL SQ SCH ×2 (06:30→13:58)
[2017-10-06] MEDS: LEVOTHYROXINE SODIUM 112 MCG TAB PO SCH (06:30)
[2017-10-06 06:43] LABS: AUTOMATED NEUTROPHIL # 20.2 TH/MM3 (1.8-7.7); BASOPHIL # 0.1 TH/MM3 (0-0.2); BASOPHIL % 0.5 % (0.0-2.0); HEMOGLOBIN 15.8 GM/DL (11.6-15.3); LYMPH % 15.4 % (9.0-44.0); LYMPHOCYTE # 3.8 TH/MM3 (1.0-4.8); MEAN CELL VOLUME 103.6 FL (80.0-100.0); MEAN CORPUSCULAR HEMOGLOBIN 33.4 PG (27.0-34.0); MEAN CORPUSCULAR HGB CONC 32.2 % (32.0-36.0); MEAN PLATELET VOLUME 8.5 FL (7.0-11.0); MONO % 2.1 % (0.0-8.0); MONOCYTE # 0.5 TH/MM3 (0-0.9); PLATELET COUNT 134 TH/MM3 (150-450); RED BLOOD COUNT 4.73 MIL/MM3 (4.00-5.30); RED CELL DISTRIBUTION WIDTH 13.1 % (11.6-17.2); WHITE BLOOD COUNT 24.6 TH/MM3 (4.0-11.0)
[2017-10-06 07:10] LABS: CALCIUM 8.6 MG/DL (8.5-10.1); CREATININE 0.93 MG/DL (0.50-1.00)
[2017-10-06 07:11] LABS: BICARBONATE 20.4 MEQ/L (21.0-32.0); MAGNESIUM 1.2 MG/DL (1.5-2.5)
[2017-10-06] MEDS: RESP: ALBUTEROL 2.5 MG/IPRATROPIUM 0.5 MG NEB (SCH) NEB ×2 (07:48→13:22)
[2017-10-06 07:50] VITALS: BP 174/80; PULSE 69; RESP 20; TEMP 96.4; O2SAT 93
[2017-10-06 08:05] LABS: TOXIC GRANULATION 1+ (NORMAL)
--- NOTE | 2017-10-06 08:06 | HHI.PR ---
Subjective Remarks Patient seen and examined today in follow-up for acute on chronic hypoxic respiratory failure secondary to pulmonary fibrosis, bronchiectasis. Objective Vital Signs Date Time Temp Pulse Resp B/P (MAP) Pulse Ox O2 Delivery O2 Flow Rate FiO2 10/06/17 07:50 93 Nasal Cannula 5.00 10/06/17 04:00 96.0 88 20 133/81 (98) 90 10/06/17 00:00 96.0 86 20 192/90 (124) 92 10/05/17 20:45 94 Nasal Cannula 6.00 10/05/17 20:00 96.0 79 20 144/85 (104) 95 10/05/17 15:50 96.6 93 20 121/60 (80) 91 10/05/17 11:50 97.6 80 20 165/77 (106) 95 I/O 10/05/17 10/05/17 10/05/17 10/06/17 10/06/17 10/06/17 07:00 15:00 23:00 07:00 15:00 23:00 Intake Total 689 ml 133 ml 910 ml 60 ml Output Total 480 ml 300 ml 375 ml Balance 209 ml 133 ml 610 ml -315 ml Intake Oral 480 ml 810 ml 60 ml IV Total 209 ml 133 ml 100 ml Output Urine Total 480 ml 300 ml 375 ml # Voids 2 # Bowel Movements 2 0 Result Diagram: 10/06/1762610/06/17626 Objective Remarks GENERAL: Well-developed, well-nourished, in no acute distress. alert and orientated HEENT: Head is normocephalic without any lesions or masses noted. Facial features are symmetric. Eyes: Extraocular muscles are intact. Conjunctivae were clear. NECK: Supple without any masses. Trachea midline no deviation. No JVD, CARDIAC: Regular rhythm, regular rate. S1/S2 are heard. No murmurs gallops or rubs. LUNGS: Faint crackles noted, no wheezes or rhonchi. No use of accessory muscles on inspiration or expiration. ABDOMEN: Soft, nontender. Nondistended. Bowel sounds heard in all 4 quadrants. No organomegaly or masses. Negative rebound, negative guarding EXTREMITIES: No edema, pulses are equal bilaterally. No cyanosis or clubbing NEUROLOGY: Mood and affect appear appropriate. Cranial nerves II through XII grossly intact. Moving all extremities, speech is clear A/P Assessment and Plan Systemic inflammatory response syndrome, resolved Patient presented with leukocytosis, lactic acidosis, no source of infection was identified Likely secondary to acute respiratory failure Chest x-ray without any infectious etiology, urinalysis was clear Blood cultures are negative for 2 days Acute on chronic hypoxic respiratory failure Likely secondary to acute bronchitis on pulmonary fibrosis, bronchiectasis Continue O2 supplementation maintain O2 saturation greater than 88% Continue antibiotics Rocephin and doxycycline Continue Solu-Medrol 40 mg IV every 8 hours Continue duo nebs every 6 hours while awake and every 2 hours Start easy Pap and incentive spirometry Pulmonology following the patient Hospice consulted at the request of the patient for evaluation Diabetes Accu-Cheks with sliding scale insulin Hypothyroidism Replacement therapy has been continued DVT prevention Subcutaneous heparin Discharge Planning Patient requested hospice consult. Possible discharge to hospice once arrangements made Joel Rodriguez Oct 06, 2017 08:05
[2017-10-06] MEDS ORDERED: MAGNESIUM OXIDE 400 MG TAB PO ONE (08:15)
[2017-10-06] MEDS: SODIUM CHLORIDE 0.9% FLUSH 10 ML FLUSH IV FLUSH SCH (08:25)
[2017-10-06] MEDS: MELOXICAM 15 MG TAB PO SCH (08:25)
[2017-10-06] MEDS: DOXYCYCLINE HYCLATE 100 MG TAB PO SCH (08:25)
[2017-10-06] MEDS: INSULIN ASPART SUPPLEMENTAL SCALE SQ SCH ×2 (08:25→12:53)
[2017-10-06] MEDS: DOCUSATE SODIUM 50 MG/SENNA 8.6 MG TAB PO SCH (08:25)
--- NOTE | 2017-10-06 10:55 | HHI.DCPOC ---
Discharge Care Plan Diagnosis: (1) Acute hypoxemic respiratory failure (2) Pulmonary fibrosis (3) Bronchitis Goals to Promote Your Health * To prevent worsening of your condition and complications * To maintain your health at the optimal level Directions to Meet Your Goals Take your medications as prescribed Follow your dietary instruction Follow activity as directed Keep your appointments as scheduled Take your immunizations and boosters as scheduled If your symptoms worsen call your PCP, if no PCP go to Urgent Care Center or Emergency Room Smoking is Dangerous to Your Health. Avoid second hand smoke Call the 24-hour hour crisis hotline for domestic abuse at Joel Rodriguez Oct 06, 2017 10:54
[2017-10-06] MEDS ORDERED: CEFU1TAB20 PO (11:01)
[2017-10-06] MEDS ORDERED: DOXY100T PO (11:01)
[2017-10-06] MEDS ORDERED: PRED10PA2 PO (11:01)
--- NOTE | 2017-10-06 11:03 | HHI.DS ---
Discharge Summary Admission Date Oct 03, 2017 at 22:14 Discharge Date: Oct 06, 2017 Admitting Diagnosis acute on chronic resp failure, DNR, pulm fibrosis (1) Acute hypoxemic respiratory failure ICD Code: J96.01 - Acute respiratory failure with hypoxia Status: Acute (2) Pulmonary fibrosis ICD Code: J84.10 - Pulmonary fibrosis, unspecified Status: Acute (3) Bronchitis ICD Code: J40 - Bronchitis, not specified as acute or chronic Procedures None Brief History - From Admission This patient is a 72-year-old female with a history of pulmonary fibrosis who came to the hospital secondary to decreased breathing, nausea and altered mental status for 1 day. Patient was brought to the hospital by emergency services after her called. Per she had turned blue. Patient says she had a lot of lower predinner was working a lot and had difficulty breathing and tried to lay down but apparently she didn't wake up in a timely fashion and then she woke up to find multiple emergency personnel around her. She has known history of polio fibrosis for the last 4 years. She has seen several card punching machine operator in the past and has finally scheduled with Dr. Hyatt. Patient says her grandson was 17 was sick and coughing and she may have caught something from him. She did have some coughing. She has felt better with bronchodilators and oxygen. On arrival she required 15 L on a partial nonrebreather. Normally she uses 3-4 L at home. She is minimally ambulatory and has poor quality of life due to respiratory status. She is quite acidotic on arrival. In the emergency room she did have a DNR placed in her chart after conversations with the emergency room professional team. She felt better after IV Lasix was given. She did diurese quite a bit and about a liter fluid was obtained. She has been admitted to the hospital due to severe respiratory failure and evidence of sepsis CBC/BMP: 10/06/17 0627 10/06/17 0627 Significant Findings Laboratory Tests Test 10/03/17 20:30 10/03/17 20:37 10/03/17 21:15 10/03/17 21:25 White Blood Count 23.3 TH/MM3 (4.0-11.0) Red Blood Count 5.54 MIL/MM3 (4.00-5.30) Hemoglobin 18.2 GM/DL (11.6-15.3) Hematocrit 56.8 % (35.0-46.0) Mean Corpuscular Volume 102.6 FL (80.0-100.0) Neutrophils # (Auto) 13.5 TH/MM3 (1.8-7.7) Lymphocytes # (Auto) 8.3 TH/MM3 (1.0-4.8) Monocytes # (Auto) 1.2 TH/MM3 (0-0.9) Neutrophils # (Manual) 13.5 TH/MM3 (1.8-7.7) Platelet Morphology Comment CLUMPED (NORMAL) Blood Urea Nitrogen 31 MG/DL (7-18) Creatinine 1.60 MG/DL (0.50-1.00) Random Glucose 258 MG/DL (74-106) Carbon Dioxide Level 16.9 MEQ/L (21.0-32.0) Anion Gap 18 MEQ/L (5-15) Estimat Glomerular Filtration Rate 32 ML/MIN (>89) B-Type Natriuretic Peptide 1114 PG/ML (0-100) Blood Gas HCO3 14 mmol/L (22-26) Blood Gas Base Excess -11.0 mmol/L (-2-2) Blood Gas Oxygen Saturation 87 % (90-100) Arterial Blood pH 7.28 (7.380-7.420) Arterial Blood Partial Pressure CO2 32 mmHG (38-42) Arterial Blood Oxygen Content 21.9 Vol % (12.0-20.0) Blood Gas Hemoglobin 17.9 G/DL (12.0-16.0) Urine Protein 30 mg/dL (NEG-TRACE) Urine Hyaline Casts 3-5 /lpf (RARE) Lactic Acid Level 5.1 mmol/L (0.4-2.0) Test 10/04/17 03:15 10/04/17 05:55 10/06/17 06:27 Lactic Acid Level 2.1 mmol/L (0.4-2.0) White Blood Count 27.1 TH/MM3 (4.0-11.0) 24.6 TH/MM3 (4.0-11.0) Hemoglobin 15.8 GM/DL (11.6-15.3) 15.8 GM/DL (11.6-15.3) Hematocrit 48.8 % (35.0-46.0) 49.0 % (35.0-46.0) Mean Corpuscular Volume 102.9 FL (80.0-100.0) 103.6 FL (80.0-100.0) Basophils (%) (Auto) 2.9 % (0.0-2.0) Neutrophils # (Auto) 12.5 TH/MM3 (1.8-7.7) 20.2 TH/MM3 (1.8-7.7) Lymphocytes # (Auto) 11.6 TH/MM3 (1.0-4.8) Monocytes # (Auto) 1.8 TH/MM3 (0-0.9) Basophils # (Auto) 0.8 TH/MM3 (0-0.2) Monocytes % 9 % (0-8) Neutrophils # (Manual) 12.5 TH/MM3 (1.8-7.7) Blood Urea Nitrogen 33 MG/DL (7-18) 32 MG/DL (7-18) Calcium Level 8.4 MG/DL (8.5-10.1) Chloride Level 108 MEQ/L (98-107) Estimat Glomerular Filtration Rate 54 ML/MIN (>89) 59 ML/MIN (>89) Platelet Count 134 TH/MM3 (150-450) Neutrophils (%) (Auto) 82.0 % (16.0-70.0) Toxic Granulation 1+ (NORMAL) Platelet Estimate LOW (NORMAL) Random Glucose 171 MG/DL (74-106) Magnesium Level 1.2 MG/DL (1.5-2.5) Carbon Dioxide Level 20.4 MEQ/L (21.0-32.0) Imaging Last Impressions Chest X-Ray 10/03/172029 Signed Impressions: Service Date/Time: Tuesday, October 03, 2017 21:18 - CONCLUSION: Chronic reticular interstitial lung disease. Elijah Leach MD Hospital Course This is 72-year-old female with known history of poorly fibrosis, bronchiectasis who presented to hospital because of worsening respiratory status , decreased mental status, an increase in O2 supplementation. When patient presented to emergency department she required 15 L partial nonrebreather to maintain O2 saturations. Patient normally is on 3-4 L of oxygen at home. Patient did have DNR placed on the chart. Patient was admitted with treatment for underlying lung condition with Solu-Medrol, doxycycline, nebulizer treatments, O2 supplementation. Patient tolerated treatment well. Patient did ask about hospice care and requested consultation. Patient had consultation performed by hospice and has accepted care upon discharge. Patient's card punching machine operator Dr. Lima following the patient during her stay in the hospital. Made recommendations for continued antibiotics and weaning of O2 supplementation. Patient is now down to 4-5 liters of oxygen to maintain O2 saturations. Laboratory studies indicating that patient is getting appropriate oxygenation with decrease in CO2 on BMP. This was discussed with the patient. Patient tolerated treatment well and has recovered quite nicely. Patient still wants to go home on hospice care. Patient's card punching machine operator was contacted and he indicated the patient is stable for discharge at this time and is in agreement with home with hospice for continued care. Patient is clinically stable this time. Will plan discharge home with hospice once arrangements made. Pt Condition on Discharge: Good Discharge Disposition: Hospice/ Home Discharge Time: > 30 minutes Discharge Instructions DIET: Follow Instructions for: Diabetic Diet Activities you can perform: Regular-No Restrictions Follow up Referrals: PCP Follow-up - 1 Week Pulmonology - 1 Week with Navya Lima MD New Medications: Cefuroxime (Cefuroxime) 500 Mg Tab 500 MG PO BID for Infection for 7 Days, #14 TAB 0 Refills Prednisone (48) 10 mg tab Dose Pack (Prednisone (48) 10 mg tab Dose Pack) 10 Mg Dspk 10 MG PO DIRECTED for Inflammation, #1 DSPK 0 Refills Doxycycline Hyclate (Doxycycline Hyclate) 100 Mg Tab 100 MG PO BID for Infection for 7 Days, #14 TAB Continued Medications: Levothyroxine (Levothyroxine) 112 Mcg Tab 112 MCG PO DAILY, #30 TAB 0 Refills Meloxicam (Mobic) 15 Mg Tab 15 MG PO DAILY, TAB 0 Refills Metformin (Metformin) 500 Mg Tab 500 MG PO BIDPC for Blood Sugar Management, #60 TAB 0 Refills Discontinued Medications: Prednisolone 5 mg Dose Pack (21 tabs) (Millipred 5 mg Dose Pack (21 tabs)) 5 Mg (21 Tabs) Yayo 15 MG PO DAILY Joel Rodriguez Oct 06, 2017 11:03
[2017-10-06 11:50] VITALS: BP 154/73; PULSE 84; RESP 20; TEMP 97.7; O2SAT 98
[2017-10-06 15:50] VITALS: BP 137/65; PULSE 99; RESP 20; TEMP 97.5; O2SAT 94
== END 2017-10-06 16:53 | disposition hospice, home (50) | DRG 189 ==
LOC: PHED 20:16 → PHEDA 22:14 → PH3A 23:55 → UNDODISIN 10-06 13:09
PROVIDERS: ADMIT Hospitalist; ATTEND Hospitalist
DX: J96.21 Acute and chronic respiratory failure with hypoxia (principal); E87.2 Acidosis; J47.0 Bronchiectasis with acute lower respiratory infection; J84.10 Pulmonary fibrosis, unspecified; R65.10 Systemic inflammatory response syndrome (SIRS) of non-infectious origin without acute organ dysfunction; Z99.81 Dependence on supplemental oxygen; Z51.5 Encounter for palliative care; Z66 Do not resuscitate; J20.9 Acute bronchitis, unspecified; J42 Unspecified chronic bronchitis; E11.9 Type 2 diabetes mellitus without complications; E03.9 Hypothyroidism, unspecified; Z79.84 Long term (current) use of oral hypoglycemic drugs; Z87.891 Personal history of nicotine dependence
CPT/HCPCS: 36600; 51702; 71045; 80048; 81001; 82805; 82948; 83605; 83735; 83880; 85007; 85025; 85027; 87040; 93005; 93306; 94150; 94640; 94664; 96374; J0696; J1644; J1815; J1940; J2920; J7030

== ENCOUNTER 2017-11-07 17:55 | Emergency (ER) | payer MEDICARE, OTHER ==
[~2017-11-07 17:55] MED LIST changes: +CEFU1TAB20 PO; +DOXY100T PO; +LEVO-168 PO; +METF500T PO; +PRED10PA2 PO; -SYNT112T PO
[2017-11-07] MEDS ORDERED: EPINEPHrine HCL (1:10,000) 1 MG/10 ML SYRINGE IV ONE (17:56)
[2017-11-07] MEDS ORDERED: SODIUM BICARBONATE 8.4% INJ 50 MEQ/50 ML SYR IV ONE (17:56)
[2017-11-07 17:58] VITALS: PULSE 97
[2017-11-07 18:08] VITALS: BP 127/73
--- NOTE | 2017-11-07 18:40 | PD ---
HPI Chief Complaint: Code Blue Time Seen by Provider: 18:17 Travel History International Travel<30 days: No Contact w/Intl Traveler<30days: No History of Present Illness HPI 72yo F with pulmonary fibrosis was brought in as cardiac arrest from [facility]. Pt was found by to be unresponsive for unknown amount of time. [facility] said she was initially in asystole and combitube placed. Then pt was in vfib and had 3 defibrillations. She was in PEA on arrival. Pt had ACLS for about 45 minutes prior to arrival. PFSH Past Medical History Arthritis: Yes Asthma: Yes Cardiovascular Problems: No High Cholesterol: Yes Diabetes: Yes Endocrine: Yes Genitourinary: No Immune Disorder: No Musculoskeletal: No Neurologic: No Psychiatric: No Reproductive: No Respiratory: Yes Thyroid Disease: Yes Tubal Ligation: Yes Past Surgical History Appendectomy: Yes Gynecologic Surgery: Yes (Tubal Ligation) Insulin Pump: No Tonsillectomy: Yes Social History Alcohol Use: No Tobacco Use: No Substance Use: No Allergies-Medications (Allergen,Severity, Reaction): Coded Allergies: No Known Allergies (Verified Allergy, Unknown, 10/03/17) Reported Meds & Prescriptions Reported Meds & Active Scripts Active Prednisone (48) 10 mg tab Dose Pack (Prednisone) 10 Mg Dspk 10 Mg PO DIRECTED Cefuroxime (Cefuroxime Axetil) 500 Mg Tab 500 Mg PO BID 7 Days Doxycycline Hyclate 100 Mg Tab 100 Mg PO BID 7 Days Reported Metformin (Metformin HCl) 500 Mg Tab 500 Mg PO BIDPC Mobic (Meloxicam) 15 Mg Tab 15 Mg PO DAILY Levothyroxine (Levothyroxine Sodium) 112 Mcg Tab 112 Mcg PO DAILY Review of Systems ROS Limitations: Unresponsive Physical Exam Narrative GENERAL: 72yo F unresponsive. SKIN: Mottled. HEAD: Atraumatic. Normocephalic. EYES: Pupils fixed and dilated bilaterally. ENT: No nasal bleeding or discharge. Mucous membranes pink and moist. NECK: Trachea midline. No JVD. CARDIOVASCULAR: PEA arrest. RESPIRATORY: No accessory muscle use. Clear to auscultation. Breath sounds equal bilaterally. GASTROINTESTINAL: Abdomen softly distended. MUSCULOSKELETAL: No obvious deformities. No clubbing. No cyanosis. No edema. NEUROLOGICAL: Unresponsive. MDM Medical Decision Making Medical Screen Exam Complete: Yes Emergency Medical Condition: Yes Differential Diagnosis Respiratory arrest vs. FL vs. PE Narrative Course 72yo F here with cardiac arrest. Pt was in PEA and ROSC was obtained but lose immediately. ACLS started again and ROSC was again obtained and this time, pt had good blood pressure. Combitube was removed and pt was intubated. However, pt again lose pulses and this time ROSC was not obtained. Time of 18:23. Pt's arrive and I answered all his questions. Procedures Procedure Narrative The patient was put in optimal position for the procedure. The patient was intubated with a 7.5 cuffed endotracheal tube. Tube placement was confirmed by visualization of the tube and balloon passing through the cords, capnometry. Breath sounds were equal and well aerated bilaterally postintubation. No breath sounds over stomach. Patient tolerated procedure well. Diagnosis Primary Impression: Cardiac arrest Disposition: 20 Condition: Jolynn Burns DO Nov 07, 2017 18:40
--- NOTE | 2017-11-08 15:32 | EKG ---
Date Performed: 11/07/2017 Time Performed: 18:02:11 PTAGE: 72 years EKG: ATRIAL FIBRILLATION WITH RAPID VENTRICULAR RESPONSE INCOMPLETE RIGHT BUNDLE BRANCH BLOCK PO SSIBLE RIGHT VENTRICULAR HYPERTROPHY NONSPECIFIC ST & T-WAVE ABNORMALITY When compare to previous tra cing, there is now atrial fibrillation With a rapid ventricular response. Can not exclude anterior in farction. Clinical corrolation is suggested. ABNORMAL ECG PREVIOUS TRACING : 10/03/2017 20.45.12 DOCTOR: Kelsy oFster Interpretating Date/Time 11/08/2017 15:30:38
== END 2017-11-07 20:25 | disposition expired ==
LOC: PHED 17:55
DX: I46.9 Cardiac arrest, cause unspecified (principal); J84.10 Pulmonary fibrosis, unspecified; J45.909 Unspecified asthma, uncomplicated; E78.00 Pure hypercholesterolemia, unspecified; E11.9 Type 2 diabetes mellitus without complications; M19.90 Unspecified osteoarthritis, unspecified site; E07.9 Disorder of thyroid, unspecified; Z79.84 Long term (current) use of oral hypoglycemic drugs
CPT/HCPCS: 31500; 93005; 99285; J0171